=== PATIENT | female | born 1970 | race Caucasian/White ===

== ENCOUNTER 2016-07-12 20:16 | Emergency (ER) | payer OTHER ==
[2016-07-12 20:34] VITALS: TEMP 99
[2016-07-12] MEDS ORDERED: ACETAMINOPHEN IV (For NPO) 1,000 MG in EMPTY BAG 1 BAG IVPB STA (20:51)
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
[2016-07-12 21:10] LABS: Basophils % (A) 1 %; CH 31.5; CHCM 31.5; Eosinophils # (A) 0.2 k/uL (0-0.7); Eosinophils % (A) 3 %; HCT 41.9 % (34.0-46.0); HDW 2.21; HGB 13.4 gm/dL (11.4-16.0); Luc # (Auto) 0.13; Luc % (Auto) 2; Lymphocytes # (A) 1.8 k/uL (1.0-4.8); Lymphocytes % (A) 28 %; MCHC 31.9 g/dL (31.0-37.0); MCV 100.4 fL (80.0-100.0); Mean Platelet Volume 7.2; Monocytes # (A) 0.3 k/uL (0-1.0); Monocytes % (A) 5 %; Neutrophils % (A) 62 %; RBC 4.17 m/uL (3.80-5.40); RDW 13.6 % (11.5-15.5); WBC 6.4 k/uL (3.8-10.6); WBC (Perox) 6.76
[2016-07-12 21:24] LABS: ALT 52 U/L (9-52); AST 43 U/L (14-36); Alkaline Phosphatase 69 U/L (38-126); Anion Gap 11 mmol/L; Blood Urea Nitrogen 6 mg/dL (7-17); Calcium 8.8 mg/dL (8.4-10.2); Carbon Dioxide 23 mmol/L (22-30); Chloride 110 mmol/L (98-107); Glucose 90 mg/dL (74-99); Non-African American GFR(MDRD) >60 (>60 ml/min/1.73 sqM); Potassium 4.2 mmol/L (3.5-5.1); Sodium 144 mmol/L (137-145); Total Bilirubin 0.4 mg/dL (0.2-1.3); Total Protein 7.1 g/dL (6.3-8.2)
--- NOTE | 2016-07-12 21:24 | CT ---
EXAMINATION TYPE: CT brain faustoine wo con DATE OF EXAM: 07/12/2016 9:12 PM COMPARISON: 09/15/2015 HISTORY: 46-year-old female with fall today with posterior injury and laceration CT DLP: 1486.2 mGycm Automated exposure control for dose reduction was used. Technique: Examination of the head was done in axial plane without intravenous contrast. Coronal and sagittal reconstructions performed. CT of the cervical spine was obtained in axial plane without intravenous injection of contrast mater ial. Coronal and sagittal reformatted images were obtained from the axial views for evaluation of f ractures, spinal alignment and canal. FINDINGS: Head: There is no evidence of acute intracranial hemorrhage, acute ischemic changes, mass, mass-effect, or extra-axial fluid collection. There is no effacement of cerebral sulci or basal subarachnoid cister ns. There is no midline shift. Martin-white matter distinction is preserved. There is mild ventriculomegaly likely secondary to central cerebral volume loss, similar to prior exa m. Ortiz ratio is calculated at 0.33. Large right lateral scalp hematoma. Associated laceration. No calvarial fracture. Stable small polyp or mucosal retention cyst left sphenoid sinus. Slight leftward nasal septal deviat ion. Mastoid air cells well pneumatized. Orbits and globes are intact. Cervical spine: There is some chronic appearing deformity to the left occipital condyle and left atlantooccipital art iculation with appearance unchanged from 09/15/2015. No predental space widening or prevertebral soft tissue swelling. Preserved alignment of the cervical spine without acute fracture identified. No acute fracture of the cervical spine. No significant spinal canal or neuroforaminal stenosis identified. Sagittal and coronal reformatted images confirm above findings. COMBINED IMPRESSION: 1. Large right lateral scalp hematoma without underlying calvarial fracture or acute intracranial abn ormality seen. Mild ventriculomegaly possibly secondary to central cerebral atrophy is unchanged. 2. No acute fracture or malalignment of the cervical spine. There is stable chronic-appearing bony de formity of the left occipital condyle and left atlantooccipital articulation, unchanged from 6. This could be congenital or secondary to remote injury.
[2016-07-12 21:25] LABS: Alcohol 189 mg/dL
[2016-07-13 01:52] VITALS: BP 138/82; PULSE 91; RESP 18
== END 2016-07-13 01:50 | disposition home or self-care (01) ==
LOC: EC 20:16
DX: S01.01XA Laceration without foreign body of scalp, initial encounter (principal); F10.120 Alcohol abuse with intoxication, uncomplicated; F17.200 Nicotine dependence, unspecified, uncomplicated; I10 Essential (primary) hypertension; Y90.6 Blood alcohol level of 120-199 mg/100 ml; Z79.899 Other long term (current) drug therapy; W10.9XXA Fall (on) (from) unspecified stairs and steps, initial encounter; Y92.009 Unspecified place in unspecified non-institutional (private) residence as the place of occurrence of the external cause
CPT/HCPCS: 99284; 12004; 36415; 80053; 85025; 80320; 72125; 70450; J0131

== ENCOUNTER 2022-07-27 01:38 | Emergency (ER) | payer OTHER ==
[2022-07-27 01:47] VITALS: BP 135/98; PULSE 79; RESP 18; TEMP 97.9
[2022-07-27] MEDS ORDERED: LIDOCAINE 1% INJ 10MG/ML (30 ML VIAL-PF) SQ ONE (02:00)
[2022-07-27] MEDS ORDERED: DIPH,PERTUS(ACELL)TETVAC-LF 0.5 ML VIAL IM ONE (02:00)
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
--- NOTE | 2022-07-27 02:42 | XR ---
EXAM: XR Chest, 2 Views CLINICAL HISTORY: ITS.REASON XR Reason: fall, R sided rib pain TECHNIQUE: Frontal and lateral views of the chest. COMPARISON: Chest radiograph on 09/15/2015 FINDINGS: Hardware: None. Lungs/pleura: Mild right basilar opacity. No focal consolidation. No pleural effusion or pneumothorax. Heart/mediastinum: Stable mild enlargement of the cardiac silhouette. Soft tissues: Unremarkable. Bones: Old left-sided rib fracture deformities. Upper abdomen: Cholecystectomy clips in the right upper quadrant. IMPRESSION: Mild right basilar atelectasis. No focal consolidation.
--- NOTE | 2022-07-27 02:54 | CT ---
EXAM: CT Head Without Intravenous Contrast CLINICAL HISTORY: ITS.REASON CT Reason: fall w head injury TECHNIQUE: Axial computed tomography images of the head/brain without intravenous contrast. CTDI is 27.4 mGy and DLP is 709.4 mGy-cm. This CT exam was performed using one or more of the following dose reduction techniques: automated exposure control, adjustment of the mA and/or kV according to patient size, and/or use of iterative reconstruction technique. COMPARISON: CT head on 09/15/2015 FINDINGS: Brain: No acute infarct or hemorrhage identified. No extra-axial fluid collection. No mass effect or midline shift. Scattered areas of hypoattenuation in the supratentorial white matter likely represent chronic small vessel ischemic changes. Ventricles and sulci: Prominence of the ventricles and sulci is likely secondary to cerebral volume loss. Similar enlargement of the lateral and third and fourth ventricles. Hydrocephalus is not excluded. Bones: Probable old fracture deformity of the nasal bones. No bony lesion or acute fracture. Subcutaneous tissues: Age indeterminate laceration change in the right parietal scalp. Mild right periorbital soft tissue swelling. Sinuses: Small polyps versus mucous retention cysts in the right maxillary sinus and left sphenoid sinus. Mastoid air cells: Normal. Orbits: Grossly unremarkable. Other: Atherosclerotic calcifications in the intracranial vasculature. IMPRESSION: 1. No acute territorial infarct or hemorrhage identified. 2. Chronic small vessel ischemic changes and cerebral volume loss. 3. Similar enlargement of the lateral and third and fourth ventricles. Hydrocephalus is not excluded. 4. Age indeterminate laceration change in the right parietal scalp. Mild right periorbital soft tissue swelling. EXAM: CT Cervical Spine Without Intravenous Contrast CLINICAL HISTORY: ITS.REASON CT Reason: fall w head injury TECHNIQUE: Axial computed tomography images of the cervical spine without intravenous contrast. CTDI is 27.4 mGy and DLP is 709.4 mGy-cm. This CT exam was performed using one or more of the following dose reduction techniques: automated exposure control, adjustment of the mA and/or kV according to patient size, and/or use of iterative reconstruction technique. COMPARISON: CT C-spine on 09/15/2015 FINDINGS: Bones: Normal alignment. No acute fracture or bony lesion. Congenital incomplete posterior arch of C1. Disc spaces: No subluxation. No spinal canal stenosis or neuroforaminal stenosis. Soft tissues: Normal. Other: Cerumen in the external auditory canals. IMPRESSION: No acute traumatic abnormality.
--- NOTE | 2022-07-27 03:08 | CT ---
EXAM: CT Chest Without Intravenous Contrast CLINICAL HISTORY: ITS.REASON CT Reason: FALL, RT RIB PAIN TECHNIQUE: Axial computed tomography images of the chest without intravenous contrast. CTDI is 7.3 mGy and DLP is 312.3 mGy-cm. This CT exam was performed using one or more of the following dose reduction techniques: automated exposure control, adjustment of the mA and/or kV according to patient size, and/or use of iterative reconstruction technique. COMPARISON: Same day chest radiograph FINDINGS: Lungs: Mild dependent atelectasis on the right. Pleural space: Unremarkable. No pleural effusion or pneumothorax. Heart: Cardiomegaly. No significant pericardial effusion. No significant coronary artery calcifications. Bones/joints: Age-indeterminate fracture deformity of the right anterolateral fifth rib. Old left-sided rib fracture deformities. No dislocation. Soft tissues: Unremarkable. Vasculature: Unremarkable. No thoracic aortic aneurysm. Lymph nodes: Unremarkable. No enlarged lymph nodes. Liver: Right hepatic cyst. Other small hypodensities in the liver are too small to definitively characterize. Gallbladder and bile ducts: Prior cholecystectomy. IMPRESSION: 1. No pleural effusion or pneumothorax. 2. Age-indeterminate fracture deformity of the right anterolateral fifth rib. 3. No acute pulmonary parenchymal abnormality identified.
[2022-07-27] MEDS ORDERED: TOPICAL SKIN ADHESIVE 1 EACH AMP TOPICAL ONE (03:33)
== END 2022-07-27 04:36 | disposition home or self-care (01) ==
LOC: EC 01:38
DX: S01.81XA Laceration without foreign body of other part of head, initial encounter (principal); I10 Essential (primary) hypertension; F17.200 Nicotine dependence, unspecified, uncomplicated; F12.90 Cannabis use, unspecified, uncomplicated; Z79.899 Other long term (current) drug therapy; Z23 Encounter for immunization; W01.0XXA Fall on same level from slipping, tripping and stumbling without subsequent striking against object, initial encounter
CPT/HCPCS: 71046; 72125; 70450; 71250; 90715; 99284; 90471; 12011; J2001

== ENCOUNTER 2022-07-28 20:43 | Emergency (ER) | payer OTHER ==
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
[2022-07-28] MEDS ORDERED: LIDOCAINE 5% PATCH TOPICAL SCH (22:15)
[2022-07-28 22:29] VITALS: BP 140/68; PULSE 88; RESP 16; TEMP 98.2
== END 2022-07-28 22:30 | disposition home or self-care (01) ==
LOC: EC 20:43
DX: R07.81 Pleurodynia (principal); I10 Essential (primary) hypertension; F12.90 Cannabis use, unspecified, uncomplicated; F17.200 Nicotine dependence, unspecified, uncomplicated; Z79.899 Other long term (current) drug therapy
CPT/HCPCS: 99283

== ENCOUNTER 2024-04-08 03:10 | Observation (INO) | payer OTHER ==
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
[2024-04-08] MEDS ORDERED: HEPARIN SODIUM 1,000 UN/ML (10ML VL) IV PRN (03:35)
[2024-04-08] MEDS: ONDANSETRON 4 MG/2 ML VIAL IVP STA (03:50)
[2024-04-08 03:52] LABS: Basophils # (A) 0.1 k/uL (0-0.2); Basophils % (A) 0 %; Eosinophils # (A) 0.1 k/uL (0-0.7); Eosinophils % (A) 1 %; HCT 39.1 % (34.0-46.0); HGB 12.9 gm/dL (11.4-16.0); Lymphocytes # (A) 1.4 k/uL (1.0-4.8); Lymphocytes % (A) 9 %; MCH 33.3 pg (25.0-35.0); MCV 100.9 fL (80.0-100.0); Mean Platelet Volume 7.8; Monocytes # (A) 0.8 k/uL (0-1.0); Monocytes % (A) 5 %; Neutrophils % (A) 84 %; Platelet Count 270 k/uL (150-450); RBC 3.87 m/uL (3.80-5.40); RDW 11.6 % (11.5-15.5); WBC 15.5 k/uL (3.8-10.6)
[2024-04-08] MEDS: MORPHINE SULFATE 4 MG/ML SYRINGE IVP STA (04:00)
[2024-04-08 04:13] LABS: ALT 35 U/L (4-34); AST 34 U/L (14-36); African American GFR (CKD) >90 (>60 ml/min/1.73 sqM); Albumin 4.6 g/dL (3.5-5.0); Alkaline Phosphatase 101 U/L (38-126); Anion Gap 12 mmol/L; Blood Urea Nitrogen 12 mg/dL (7-17); Calcium 9.9 mg/dL (8.4-10.2); Carbon Dioxide 21 mmol/L (22-30); Chloride 103 mmol/L (98-107); Glucose 125 mg/dL (74-99); Magnesium 2.1 mg/dL (1.6-2.3); Non-African American GFR(CKD) 89 (>60 ml/min/1.73 sqM); Potassium 4.7 mmol/L (3.5-5.1); Sodium 136 mmol/L (137-145); Total Bilirubin 0.4 mg/dL (0.2-1.3); Total Protein 7.1 g/dL (6.3-8.2)
[2024-04-08] MEDS: HEPARIN SOD,PORK IN 0.45% NACL 25,000 UNIT in 0.45% NACL 1 250ML.BAG IV SCH (04:15)
[2024-04-08 04:21] LABS: NT-Pro-B-Type Natriuretic Pept 25 pg/mL
[2024-04-08 04:25] LABS: Partial Thromboplastin Time 48.3 sec (22.0-30.0); Prothrombin Time 11.4 sec (10.0-12.5)
[2024-04-08] MEDS ORDERED: NITROGLYCERIN SL TABS 0.4 MG TAB SUBLINGUAL PRN (05:18)
[2024-04-08] MEDS: MORPHINE SULFATE 2 MG/ML SYRINGE IVP PRN (07:53)
[2024-04-08] MEDS: ACETAMINOPHEN TAB 325 MG TAB PO PRN (07:53)
[2024-04-08] MEDS: IPRATROPIUM-ALBUTEROL 3 ML NEB INHALATION STA (09:36)
[2024-04-08] MEDS: lisinopriL 20 MG TAB PO SCH (09:54)
--- NOTE | 2024-04-08 11:22 | CA ---
Transthoracic Echo Report Name: Arminda Lentz Age: 53 Gender: F : 1970 Exam Date: 04/08/2024 09:17 Exam Location: [facility] Ht (in): 63 Wt (lb): 148 Ordering Physician: Marina Montes De Oca MD Attending/Referring Phys: Entry Level Account Manager Macie Smart RDCS Procedure CPT: Indications: Chest Pain Cardiac Hx: Technical Quality: Fair Contrast 1: Total Dose (mL): Contrast 2: Total Dose (mL): MEASUREMENTS (Male / Female) Normal Values 2D ECHO LV Diastolic Diameter PLAX 3.6 cm 4.2 - 5.9 / 3.9 - 5.3 cm LV Systolic Diameter PLAX 2.4 cm IVS Diastolic Thickness 1.0 cm 0.6 - 1.0 / 0.6 - 0.9 cm LVPW Diastolic Thickness 1.0 cm 0.6 - 1.0 / 0.6 - 0.9 cm LV Relative Wall Thickness 0.6 RV Internal Dim ED PLAX 1.8 cm LA Systolic Diameter LX 3.1 cm 3.0 - 4.0 / 2.7 - 3.8 cm LV Diastolic Volume MOD BP 38.8 cm??? 67 - 155 / 56 - 104 cm??? LV Systolic Volume MOD BP 14.1 cm??? 22 - 58 / 19 - 49 cm??? LV Ejection Fraction MOD BP 63.7 % >= 55 % LV Cardiac Index MOD BP 936.6 cm???/min???m??? LV Diastolic Volume MOD 4C 46.6 cm??? LV Systolic Volume MOD 4C 16.6 cm??? LV Ejection Fraction MOD 4C 64.4 % LV Cardiac Index MOD 4C 1136.2 cm???/min???m??? LV Diastolic Length 4C 6.7 cm LV Systolic Length 4C 5.8 cm LV Diastolic Volume MOD 2C 28.2 cm??? LV Systolic Volume MOD 2C 11.2 cm??? LV Ejection Fraction MOD 2C 60.3 % LV Cardiac Index MOD 2C 644.8 cm???/min???m??? LV Diastolic Length 2C 5.8 cm LV Systolic Length 2C 5.3 cm LA Volume 24.4 cm??? 18 - 58 / 22 - 52 cm??? LA Volume Index 14.0 cm???/m??? 16 - 28 cm???/m??? M-MODE Aortic Root Diameter MM 3.3 cm LA Systolic Diameter MM 2.9 cm LA Ao Ratio MM 0.9 AV Cusp Separation MM 1.8 cm DOPPLER MV Area PHT 3.9 cm??? Mitral E Point Velocity 84.7 cm/s Mitral A Point Velocity 76.6 cm/s Mitral E to A Ratio 1.1 MV Deceleration Time 193.7 ms TR Peak Velocity 159.0 cm/s TR Peak Gradient 10.1 mmHg FINDINGS Left Ventricle Left ventricular ejection fraction is estimated at 55-60 %. Mildly increased posterior wall thickness. Normal left ventricular systolic function with no obvious regional wall motion abnormalities. Left ventricular wall thickness normal. Right Ventricle Mild right ventricular dilatation. Right ventricular systolic pressure within normal limits. Right Atrium Normal right atrial size. Left Atrium Normal left atrial size. Mitral Valve Structurally normal mitral valve. Trace mitral regurgitation. No mitral stenosis. Aortic Valve Trileaflet aortic valve. No aortic valve stenosis or regurgitation. Tricuspid Valve Structurally normal tricuspid valve. Trace tricuspid regurgitation. No tricuspid stenosis. Pulmonic Valve Structurally normal pulmonic valve. No pulmonic stenosis. Trace pulmonic regurgitation. Pericardium No pericardial or pleural effusion. Aorta Normal size aortic root and proximal ascending aorta. CONCLUSIONS Normal biventricular systolic function Mildly enlarged right ventricle Normal pulmonary artery systolic pressure Overall normal intracardiac valves Normal aortic root and proximal ascending aorta No pericardial effusion Previewed by: Dr. José Luis Morales MD (Electronically Signed) Final Date: 08 April 2024 11:21
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
[2024-04-08] MEDS ORDERED: MORPHINE SULFATE 2 MG/ML SYRINGE IVP PRN (13:38)
--- NOTE | 2024-04-08 14:09 | XR ---
EXAMINATION TYPE: XR chest 1V portable DATE OF EXAM: 04/08/2024 12:10 PM COMPARISON: 07/27/2022 CLINICAL INDICATION: Female, 53 years old with history of chest pain/tightness, TECHNIQUE: XR chest 1V portable view(s) obtained. FINDINGS: The heart size is prominent. The pulmonary vasculature is normal. The lungs are clear. IMPRESSION: 1. Cardiomegaly. 2. No acute pulmonary process. [facility], , 04/08/2024 2:07 PM
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
[2024-04-08] MEDS: NICOTINE 14MG/24HR PATCH TRANSDERM SCH (14:39)
[2024-04-08 16:12] VITALS: BP 143/98; PULSE 93; RESP 19; TEMP 99.4
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
[2024-04-08] MEDS ORDERED: ATORVASTATIN 40 MG TAB PO SCH (21:00)
[2024-04-09] MEDS ORDERED: ASPIRIN 325 MG TAB PO SCH (09:00)
[2024-04-09] MEDS ORDERED: ASPIRIN 81 MG PO SCH (09:00)
== END 2024-04-08 16:30 | disposition home or self-care (01) ==
LOC: EC 03:10 → 1SOBS 05:18 → 6NMEDSUR 11:07
PROVIDERS: ADMIT Internal Medicine; ATTEND Internal Medicine
DX: R07.89 Other chest pain (principal); I11.9 Hypertensive heart disease without heart failure; I34.0 Nonrheumatic mitral (valve) insufficiency; J44.9 Chronic obstructive pulmonary disease, unspecified; E78.5 Hyperlipidemia, unspecified; G43.909 Migraine, unspecified, not intractable, without status migrainosus; M25.512 Pain in left shoulder; R41.3 Other amnesia; D75.89 Other specified diseases of blood and blood-forming organs; D72.829 Elevated white blood cell count, unspecified; F17.210 Nicotine dependence, cigarettes, uncomplicated; R74.01 Elevation of levels of liver transaminase levels; Z79.899 Other long term (current) drug therapy; Z87.820 Personal history of traumatic brain injury; Z86.74 Personal history of sudden cardiac arrest
CPT/HCPCS: 96376; 96365; 96366; 96375; 99285; 36415; 93005; 93306; 85379; 83880; 80053; 83735; 84484; 85025; 85610; 85730; 71045; G0378 ×2; S4990; J2270 ×2; J2405; J1644